=== PATIENT | male | born 1980 | race African-American/Black ===

== ENCOUNTER 2017-07-04 06:57 | Emergency (ER) | payer MEDICAID, OTHER ==
[~2017-07-04] VITALS: Ht 182.9 cm; Wt 95.0 kg
[~2017-07-04 06:57] MED LIST: ALBU05
[2017-07-04] MEDS ORDERED: IPRATROPIUM BROMIDE (0.02%) 0.5MG/2.5ML NEB HHN STA (07:06)
[2017-07-04] MEDS ORDERED: PREDNISONE 20MG TABLET PO STA (07:06)
[2017-07-04] MEDS ORDERED: ALBUTEROL (0.083%) 2.5MG/3ML NEB HHN SCH (07:30)
[2017-07-04 07:36] LABS: CHLORIDE 103 mEq/L (98-107)
[2017-07-04 07:39] LABS: EOSINOPHILS % 8.2 % (0.0-5.0); HEMATOCRIT. 43.3 % (42.0-52.0); HEMOGLOBIN. 14.4 g/dL (14.0-18.0); LYMPHOCYTES % 24.2 % (20.0-50.0); MEAN CORPUSCULAR HEMOGLOBIN 26.4 pg (28.0-32.0); MEAN CORPUSCULAR VOLUME 79.5 fL (80.0-94.0); MEAN PLATELET VOLUME 7.8 fl (7.4-10.4); MONOCYTES % 10.3 % (2.0-8.0); NEUTROPHILS % 56.3 % (40.0-76.0); PLATELET 272 x1000/uL (130-400); RED BLOOD CELL COUNT 5.44 mill/uL (4.7-6.1)
[2017-07-04 07:40] LABS: CARBON DIOXIDE 32 mEq/L (21-32)
[2017-07-04 09:11] VITALS: BP 151/72
== END 2017-07-04 09:15 | disposition home or self-care (01) ==
LOC: ER 06:57
DX: J45.901 Unspecified asthma with (acute) exacerbation (principal); F12.10 Cannabis abuse, uncomplicated; R06.03 Acute respiratory distress; Z59.0 Homelessness
CPT/HCPCS: 36415; 71010; 80053; 85025; 93005; 94640; 99285; J7512; J7611; Z7610

== ENCOUNTER 2017-07-13 11:58 | Emergency (ER) | payer MEDICAID ==
[~2017-07-13] VITALS: Ht 180.3 cm; Wt 84.0 kg
[2017-07-13 12:49] VITALS: BP 149/73
== END 2017-07-13 12:51 | disposition home or self-care (01) ==
LOC: ER 12:09
DX: J45.901 Unspecified asthma with (acute) exacerbation (principal); F12.10 Cannabis abuse, uncomplicated
CPT/HCPCS: 99283

== ENCOUNTER 2017-07-23 22:14 | Emergency (ER) | payer MEDICAID ==
[~2017-07-23] VITALS: Ht 175.3 cm; Wt 81.0 kg
[2017-07-23] MEDS ORDERED: IPRATROPIUM BROMIDE (0.02%) 0.5MG/2.5ML NEB HHN STA (23:05)
[2017-07-23] MEDS ORDERED: PREDNISONE 20MG TABLET PO STA (23:05)
[2017-07-23] MEDS ORDERED: ALBUTEROL (0.083%) 2.5MG/3ML NEB HHN STA (23:05)
[2017-07-24 00:25] VITALS: BP 121/79
== END 2017-07-24 00:25 | disposition home or self-care (01) ==
LOC: ER 22:14
DX: J45.901 Unspecified asthma with (acute) exacerbation (principal); J02.9 Acute pharyngitis, unspecified
CPT/HCPCS: 94640; 99283; J7512; J7611

== ENCOUNTER 2017-09-30 19:06 | Emergency (ER) | payer MEDICAID ==
[~2017-09-30] VITALS: Ht 177.8 cm; Wt 81.0 kg
[2017-09-30] MEDS ORDERED: IPRATROPIUM/ALBUTEROL 0.5-3(2.5)MG/3ML NEB HHN ONE (19:30)
[2017-09-30] MEDS ORDERED: METHYLPREDNISOLONE SOD SUCC 125 MG/2 ML VIAL IV ONE (20:15)
[2017-09-30] MEDS ORDERED: ALBUTEROL 6.7GM HFA INHALER ORI ONE (20:15)
[2017-09-30 22:30] VITALS: BP 110/69
== END 2017-09-30 22:33 | disposition home or self-care (01) ==
LOC: ER 19:08
DX: J44.1 Chronic obstructive pulmonary disease with (acute) exacerbation (principal); Z87.891 Personal history of nicotine dependence
CPT/HCPCS: 87804; 94640; 96374; 99284; J2930; J7620; Z7610; J7611

== ENCOUNTER 2018-03-23 18:28 | Emergency (ER) | payer MEDICAID ==
[~2018-03-23] VITALS: Ht 170.2 cm; Wt 70.0 kg
[2018-03-23] MEDS ORDERED: CLOTRIMAZOLE 1% SOLUTION 10ML TOP ONE (21:00)
[2018-03-23] MEDS ORDERED: ACETAMINOPHEN 500MG TABLET PO ONE (21:00)
[2018-03-23] MEDS ORDERED: IBUPROFEN 400MG TABLET PO ONE (21:00)
[2018-03-23] MEDS ORDERED: BACITRACIN ZINC 15GM TUBE TOP ONE (21:00)
[2018-03-23] MEDS ORDERED: CLOTRIMAZOLE 1% CREAM 30GM TOP STA (21:13)
[2018-03-23 21:38] VITALS: BP 114/62
== END 2018-03-23 21:45 | disposition home or self-care (01) ==
LOC: ER 18:28
DX: S90.425A Blister (nonthermal), left lesser toe(s), initial encounter (principal); S90.522A Blister (nonthermal), left ankle, initial encounter; B35.3 Tinea pedis; X58.XXXA Exposure to other specified factors, initial encounter; Y93.89 Activity, other specified; Y92.89 Other specified places as the place of occurrence of the external cause; Y99.8 Other external cause status
CPT/HCPCS: 99283

== ENCOUNTER 2023-11-21 02:19 | Emergency (ER) | payer MEDICAID ==
[~2023-11-21] VITALS: Ht 177.8 cm; Wt 90.0 kg
[2023-11-21 02:20] VITALS: O2SAT 100
[2023-11-21 02:56] LABS: HEMATOCRIT. 36.6 % (42.0-52.0); HEMOGLOBIN. 11.6 g/dL (14.0-18.0); MEAN CORPUSCULAR HGB CONC 31.6 g/dL (31.0-37.0); MEAN CORPUSCULAR VOLUME 79.2 fL (80.0-94.0); MEAN PLATELET VOLUME 8.5 fl (7.4-10.4); PLATELET 179 x1000/uL (130-400); RED BLOOD CELL COUNT 4.62 mill/uL (4.7-6.1); WHITE BLOOD COUNT 5.4 x1000/uL (4.5-11.0)
[2023-11-21 02:58] LABS: DIFFERENTIAL COMMENT 1
[2023-11-21 03:05] LABS: INR 1.3; PARTIAL THROMBOPLASTIN TIME 30.7 sec (23.4-31.0); PROTHROMBIN TIME 14.2 sec (9.6-11.0)
[2023-11-21 03:14] LABS: ALANINE AMINOTRANSFERASE 36 IU/L (10-49); ALBUMIN 3.1 g/dL (3.2-4.8); ASPARTATE AMINOTRANSFERASE 56 IU/L (<34); BILIRUBIN TOTAL 1.3 mg/dL (0.1-1.0); CALCIUM 7.7 mg/dL (8.7-10.4); CARBON DIOXIDE 27 mEq/L (21-32); CHLORIDE 105 mEq/L (98-107); CREATININE 1.2 mg/dL (0.6-1.3); ETHANOL BLOOD < 10 mg/dL (<10); GLUCOSE 78 mg/dL (70-105); PROTEIN TOTAL 8.2 g/dL (6.0-8.3); SODIUM 136 mEq/L (136-145); TROPONIN I HIGH SENSITIVITY 24 ng/L (3.0-53); UREA NITROGEN BLOOD 20 mg/dL (9-23)
[2023-11-21 03:46] LABS: PLATELET ESTIMATE NORMAL
[2023-11-21] MEDS: FUROSEMIDE 40MG/4ML VIAL IVP NR (05:35)
[2023-11-21] MEDS: NITROGLYCERIN OINT 1GM/INCH UDPKT TD ONE (06:38)
[2023-11-21 08:01] LABS: CLARITY URINE CLEAR (CLEAR); COLOR URINE YELLOW (YELLOW); GLUCOSE URINE NEGATIVE (NEGATIVE); KETONES URINE NEGATIVE (NEGATIVE); LEUKOCYTE ESTERASE URINE NEGATIVE (NEGATIVE); NITRITE URINE NEGATIVE (NEGATIVE); OCCULT BLOOD URINE 3+ (NEGATIVE); PH URINE 5.5 (4.5-8.0); PROTEIN URINE 1+ (NEGATIVE); SPECIFIC GRAVITY URINE 1.008 (1.005-1.030)
[2023-11-21 08:59] LABS: RBC URINE 15-25 /hpf (0-2); SQUAMOUS EPITHELIAL CELL URINE NONE SEEN /lpf (RARE/1+)
[2023-11-21 09:06] LABS: BACTERIA URINE TRACE; WBC URINE 0-2 /hpf (0-2)
[2023-11-21 11:00] VITALS: BP 156/96; PULSE 99; RESP 14; TEMP 98.1
== END 2023-11-21 11:30 | disposition short-term general hospital (02) ==
LOC: ER 02:19 → CANBEDREQ 12:40
DX: R10.84 Generalized abdominal pain (principal); D64.9 Anemia, unspecified; I11.0 Hypertensive heart disease with heart failure; I50.9 Heart failure, unspecified; Z20.822 Contact with and (suspected) exposure to COVID-19
CPT/HCPCS: 80053; 81003; 80320; 83880; 83690; 85025; 85610; 85730; 84484; 36415; 71045; 76705; 93005; 96374; 99285; 87426; J1940; Z7610 ×6; G0480